=== PATIENT | female | born 1965 | race Caucasian/White ===

== ENCOUNTER → 2020-10-04 | Outpatient (CLI) | payer OTHER | LOC: MRI 07:53 | DX: G43.909 Migraine, unspecified, not intractable, without status migrainosus (principal); E23.6 Other disorders of pituitary gland | CPT/HCPCS: 70553; A9577 ==

== ENCOUNTER → 2021-03-28 | Outpatient (CLI) | payer BC | LOC: EMI 08:45 | DX: M54.2 Cervicalgia (principal); G37.9 Demyelinating disease of central nervous system, unspecified; E23.6 Other disorders of pituitary gland; G43.009 Migraine without aura, not intractable, without status migrainosus; Z98.1 Arthrodesis status; M48.02 Spinal stenosis, cervical region; R93.0 Abnormal findings on diagnostic imaging of skull and head, not elsewhere classified | CPT/HCPCS: 70551; 72141 ==

== ENCOUNTER → 2021-05-05 | Outpatient (CLI) | payer BC | LOC: EXRD 13:23 | DX: E04.1 Nontoxic single thyroid nodule (principal); E04.2 Nontoxic multinodular goiter | CPT/HCPCS: 76536 ==